=== PATIENT | male | born 1955 | race Caucasian/White ===

== ENCOUNTER 2022-03-10 19:00 | Emergency (ER) | payer OTHER ==
--- NOTE | 2022-03-10 19:22 | ED Physician Documentation ---
PD HPI BACK PAIN - Stated complaint Stated Complaint: C+,SPASMS,VOMIT - Chief complaint Chief Complaint: Back Pain - History obtained from History obtained from: Patient - Additional information Additional information: He developed COVID about 3 weeks ago despite being triple vaccinated. He was getting better but still managed to test positive yesterday at home. Today because he was feeling better he was working outside and developed sudden right flank pain and then vomited and developed some right lower quadrant pain. He has a history of renal colic but it was long enough ago that he does not remember if this is similar or not. He denies fevers or chills. Had a normal bowel movement earlier today. He declines pain or nausea medicine on initial evaluation. Review of Systems Ten Systems: 10 systems reviewed and negative Constitutional: reports: Fatigue. denies: Fever, Chills Respiratory: denies: Dyspnea, Cough GI: reports: Abdominal Pain, Nausea, Vomiting. denies: Constipation, Diarrhea PD PAST MEDICAL HISTORY - Present Medications Home Medications: Ambulatory Orders Medication Instructions Recorded Confirmed Ondansetron Odt [Zofran] 4 mg TL Q6H PRN #10 tablet 03/10/22 Oxycodone HCl/Acetaminophen 1 - 2 each PO Q6H PRN #14 tablet 03/10/22 [Percocet 5-325 mg Tablet] Tamsulosin [Flomax] 0.4 mg PO DAILY #14 cap 03/10/22 - Allergies Allergies/Adverse Reactions: Allergies Allergy/AdvReac Type Severity Reaction Status Date / Time No Known Drug Allergies Allergy Verified 03/10/22 19:14 PD ED PE NORMAL - Vitals Vital signs reviewed: Yes - General General: Alert and oriented X 3, No acute distress - Neck Neck: Supple, no meningeal sign, No bony TTP - Cardiac Cardiac: RRR, No murmur - Respiratory Respiratory: No respiratory distress, Clear bilaterally - Abdomen Abdomen: Normal bowel sounds, Soft, Other (Minimal if any right lower quadrant tenderness) - Back Back: No CVA TTP, No spinal TTP - Derm Derm: Normal color, Warm and dry - Extremities Extremities: No edema, No calf tenderness / cord - Neuro Neuro: Alert and oriented X 3, Normal speech Results - Vitals Vitals: Vital Signs - 24 hr 03/10/22 03/10/22 19:12 21:09 Temperature 36.9 C 36.9 C Heart Rate 64 61 Respiratory 17 15 Rate Blood Pressure 164/94 H 149/78 H O2 Saturation 100 99 Oxygen O2 Source Room air - Labs Labs: Laboratory Tests 03/10/22 03/10/22 03/10/22 19:30 19:30 20:15 WBC 11.3 H RBC 4.29 L Hgb 14.4 Hct 41.3 L MCV 96.3 H MCH 33.6 H MCHC 34.9 RDW 12.1 Plt Count 223 MPV 9.6 Neut # (Auto) 9.3 H Lymph # (Auto) 1.0 L [place] # (Auto) 0.8 Eos # (Auto) 0.0 Baso # (Auto) 0.0 Absolute Nucleated RBC 0.00 Nucleated RBC % 0.0 Sodium 138 Potassium 4.0 Chloride 99 L Carbon Dioxide 29 Anion Gap 10.0 BUN 21 H Creatinine 1.3 H Estimated GFR (MDRD) 56 L Glucose 115 H Calcium 9.6 Total Bilirubin 0.7 AST 19 ALT 18 Alkaline Phosphatase 59 Total Protein 7.9 Albumin 4.7 Globulin 3.2 Albumin/Globulin Ratio 1.5 Lipase 43 Urine Color YELLOW Urine Clarity HAZY Urine pH 7.5 Ur Specific [place] 1.020 Urine Protein NEGATIVE Urine Glucose (UA) NEGATIVE Urine Ketones TRACE Urine Occult Blood LARGE H Urine Nitrite NEGATIVE Urine Bilirubin NEGATIVE Urine Urobilinogen 0.2 (NORMAL) Ur Leukocyte Esterase NEGATIVE Urine RBC TNTC H Urine WBC 0-3 Ur Squamous Epith Cells NONE SEEN Urine Bacteria None Seen Ur Microscopic Review INDICATED Urine Culture Comments NOT INDICATED - Rads (name of study) CT KUB Radiology: EMP read contemporaneously PD MEDICAL DECISION MAKING - ED course ED course: 66-year-old gentleman with recent COVID presents with sudden onset back and right lower quadrant pain today. Initially declined pain medication but then acquiesced. CT KUB demonstrating an obstructing 4 mm right proximal ureteral stone. Urine without signs of infection. Feeling much better after fluids, Zofran and Toradol here. Departure - Departure Disposition: 01 Home, Self Care Clinical Impression: Renal colic on right side Condition: Good Record reviewed to determine appropriate education?: Yes Instructions: ED Stone Renal W Colic Prescriptions: Tamsulosin [Flomax] 0.4 mg PO DAILY #14 cap Oxycodone HCl/Acetaminophen [Percocet 5-325 mg Tablet] 1 - 2 each PO Q6H PRN #14 tablet PRN Reason: pain Ondansetron Odt [Zofran] 4 mg TL Q6H PRN #10 tablet PRN Reason: Nausea / Vomiting Comments: I sent your prescriptions to [facility] in [place]. Today you were found to have a 4 mm right-sided ureteral stone which is causing your pain. If not better in a few days to week talk with your primary care physician about a referral to a urologist. Return for new or worsening symptoms. In addition to the prescriptions you can take ibuprofen for pain. I am prescribing a short course of narcotic pain medication for you. These are potentially dangerous and addictive medications that should be used carefully. These medications may constipate you. Take an htbr-tpi-eiayqam stool softener (d ocusate) twice daily with plenty of water while taking these medications. If you go 24 hours without a bowel movement, take piiz-[id number] miralax, per package instructions. Do not drink or drive while taking these medications. If you received narcotic or sedating medications while in the emergency department, do not drive for 24 hours. Store this medication in a safe, secure place and out of reach of children. It is a violation of federal law to give or sell this medication to another person or to use in a manner other than prescribed. The ED will not refill narcotic prescriptions, including prescriptions lost or stolen. To dispose of unwanted medications: 1. [facility] [address] in [place] has a medication drop box. They accept prescription medications (in pill form) Thursday through Thursday 9:00 a.m. to 5:00 p.m. 2. The [facility] [employer] accepts prescription medications (in pill form only) for disposal year round. Call for more information. 3. Contact the [facility] for the next [employer] sponsored prescription drug collection event. , [phone], or x [phone]; Note that many narcotic pain relievers also contain Tylenol/acetaminophen. Please ensure that your total dose of acetaminophen from all sources does not exceed 3 g (3000 mg) per day. Discharge Date/Time: 03/10/22 21:17
[2022-03-10] MEDS ORDERED: SODIUM CHLORIDE 0.9% 1,000 ML IV STA (19:23)
[2022-03-10] MEDS ORDERED: ONDANSETRON 4 MG/2 ML VIAL IVP STA (19:44)
[2022-03-10 19:47] LABS: BASOPHILS % (AUTO) 0.4 %; EOSINOPHILS % (AUTO) 0.3 %; HCT - HEMATOCRIT 41.3 % (42.0-52.0); HGB - HEMOGLOBIN 14.4 g/dL (14.0-18.0); LYMPHOCYTES % (AUTO) 9.1 %; MEAN CORPUSCULAR HEMOGLOBIN 33.6 pg (27.0-31.0); MEAN CORPUSCULAR HGB CONC 34.9 g/dL (32.0-36.0); MEAN CORPUSCULAR VOLUME 96.3 fL (80.0-94.0); MEAN PLATELET VOLUME 9.6 fL (7.4-11.4); MONOCYTES # (AUTO) 0.8 10^3/uL (0.0-1.0); MONOCYTES % (AUTO) 7.4 %; NEUTROPHILS # (AUTO) 9.3 10^3/uL (1.5-6.6); NEUTROPHILS % (AUTO) 82.5 %; PLT - PLATELET COUNT 223 10^3/uL (130-450); RED BLOOD COUNT 4.29 10^6/uL (4.70-6.10); RED CELL DISTRIBUTION WIDTH 12.1 % (12.0-15.0); WHITE BLOOD COUNT 11.3 x10^3/uL (4.8-10.8)
[2022-03-10 20:01] LABS: ALBUMIN 4.7 g/dL (3.2-5.5); ALBUMIN/GLOBULIN RATIO 1.5 (1.0-2.2); BILIRUBIN,TOTAL 0.7 mg/dL (0.2-1.0); CALCIUM 9.6 mg/dL (8.5-10.3); CREATININE 1.3 mg/dL (0.6-1.2); TOTAL PROTEIN 7.9 g/dL (6.7-8.2)
--- NOTE | 2022-03-10 20:20 | CT Report ---
PROCEDURE: Abdomen/Pelvis WO INDICATIONS: rlq pain TECHNIQUE: Noncontrast 5 mm thick sections acquired from the diaphragms to the symphysis. 5 mm coronal and sagi ttal reformats were then performed. For radiation dose reduction, the following was used: automated exposure control, adjustment of mA and/or kV according to patient size. COMPARISON: None. FINDINGS: Image quality: There is mild motion artifact. Lung bases:There is mild dependent atelectasis and scarring in the lungs.. Heart: Heart is normal in size. ABDOMEN: Liver:Noncontrast evaluation of liver demonstrates no discrete mass. Gallbladder: Within normal limits without calcified gallstones. Biliary ducts: No biliary ductal dilatation. Pancreas: Unremarkable. Spleen: Normal in size. Adrenal Glands: No adrenal nodules. Kidneys and Ureters: There is an obstructing stone in the proximal right ureter measuring up to 0.4 cm with associated mild right hydroureteronephrosis as well as perinephric and periureteral fat stran ding. No additional right or left renal stones identified. There is no left hydronephrosis. Left uret er is nondistended. Stomach and Bowel: Stomach, small bowel loops, and colon are normal in caliber and wall thickness. T he appendix is normal in appearance. There is colonic diverticulosis without acute diverticulitis. Peritoneum: No abnormal intraperitoneal fluid. No free air. Ventral Wall: No hernia. Abdominal Nodes: No retroperitoneal or mesenteric adenopathy by size criteria. Vessels: Aorta and inferior vena cava are normal in size. PELVIS: Pelvic Organs: Unremarkable. Bladder:Normal wall thickness. No bladder stones.. Pelvic Nodes: No enlarged lymph nodes. Miscellaneous: No inguinal hernias are seen. Bones: Visualized osseous structures demonstrate no suspicious focal lesions. IMPRESSION: 1. Obstructing urinary stone in the proximal right ureter with associated mild right hydroureteroneph rosis. 2. No evidence of appendicitis. Reviewed by: Brayden Vasquez MD on 03/10/2022 8:19 PM PDT Approved by: Brayden Vasquez MD on 03/10/2022 8:19 PM PDT Station ID: [id number]
[2022-03-10] MEDS ORDERED: KETOROLAC 15 MG/ML VIAL IVP STA (20:32)
[2022-03-10 20:48] LABS: BILIRUBIN,URINE NEGATIVE (NEGATIVE); GLUCOSE, URINE (UA) NEGATIVE (NEGATIVE); KETONES,URINE (UA) TRACE mg/dL (NEGATIVE); LEUKOCYTE ESTERASE, URINE NEGATIVE (NEGATIVE); NITRITE,URINE NEGATIVE (NEGATIVE); OCCULT BLOOD,URINE LARGE (NEGATIVE); PH,URINE 7.5 PH (5.0-7.5); PROTEIN,URINE NEGATIVE (NEGATIVE); UROBILINOGEN,URINE 0.2 (NORMAL) E.U./dL (NORMAL)
[2022-03-10 20:50] LABS: CLARITY,URINE HAZY (CLEAR)
[2022-03-10] MEDS ORDERED: oxyCODONE/ACET 5/325 Prepack 4 PO STA (20:58)
[2022-03-10] MEDS ORDERED: TAMSULOSIN 0.4 MG CAPSULE PO STA (20:58)
[2022-03-10] MEDS ORDERED: ONDANSETRON ODT 4 MG Prepack 2 TL STA (20:58)
[2022-03-10 21:10] VITALS: BP 149/78
[2022-03-10 21:11] LABS: BACTERIA,URINE None Seen /HPF (None Seen); RBC,URINE TNTC /HPF (0-5); SQUAMOUS EPITHELIAL CELL,UR NONE SEEN (<= Few); WBC,URINE 0-3 /HPF (0-3)
== END 2022-03-10 21:17 | disposition home or self-care (01) ==
LOC: ED 19:00
DX: U07.1 COVID-19 (principal); N13.2 Hydronephrosis with renal and ureteral calculous obstruction
CPT/HCPCS: 36415; 74176; 80053; 81001; 83690; 85025; 96374; 96375; 99283; 99284; A9270; 81003; 87086

== ENCOUNTER 2022-04-04 19:11 | Outpatient (CLI) | payer OTHER | END 2022-04-04 19:12 | disposition critical access hospital (66) | LOC: EMS 19:11 | DX: R55 Syncope and collapse (principal); R53.1 Weakness; R42 Dizziness and giddiness; I95.1 Orthostatic hypotension | CPT/HCPCS: A0425; A0427 ==

== ENCOUNTER 2022-04-04 19:22 | Emergency (ER) | payer OTHER ==
--- NOTE | 2022-04-04 19:27 | ED Physician Documentation ---
PD HPI SYNCOPE - Stated complaint Stated Complaint: SYNCOPE - History obtained from History obtained from: Patient - History of Present Illness Witnessed: Witnessed Timing - onset: Today (The patient states he had a regular day of activities with yard work. He did state he had not had fluids much through the day. He was standing at the grill starting dinner felt lightheaded and went to sit down but then fainted. No chest pain. He did strike his head with small contusion.) Preceding symptoms: Light headed. No: Headache, Chest pain, Abdominal pain, Nausea / vomiting Associated symptoms: No: Headache, Chest pain, Abdominal pain Contributing factors: Decreased PO intake, Other (had had just few sips of wine while making dinner.). No: Recent med change, Noxious stimulae, Just stood up (was standing at the grill making dinner on their deck.) Injury occurred: Fell, Head injury (contusion right occiput) Treatment CAR MOVER: Fluids Similar symptoms before: Diagnosis (He had had couple of fainting episodes 1 or 2 years ago related to blood pressure medicine that had been started. Decreased dose still led to fainting episode with standing. He has been off the blood pressure medicine and without any symptoms now for a while.) Recently seen: Not recently seen Review of Systems Constitutional: reports: Fatigue (he states he had COVID a month ago and has not really gotten full energy back. No cough nor dyspnea. Denies exertional CP nor lightheadedness today.). denies: Fever Nose: denies: Rhinorrhea / runny nose, Congestion Throat: denies: Sore throat Respiratory: denies: Cough PD PAST MEDICAL HISTORY - Past Medical History Cardiovascular: None Respiratory: None Neuro: None Endocrine/Autoimmune: None - Past Surgical History Past Surgical History: Yes Ortho: Arthroscopic surgery, Carpal Tunnel surgery - Present Medications Home Medications: Ambulatory Orders Medication Instructions Recorded Confirmed Ondansetron Odt [Zofran] 4 mg TL Q6H PRN #10 tablet 03/10/22 Oxycodone HCl/Acetaminophen 1 - 2 each PO Q6H PRN #14 tablet 03/10/22 [Percocet 5-325 mg Tablet] Tamsulosin [Flomax] 0.4 mg PO DAILY #14 cap 03/10/22 - Allergies Allergies/Adverse Reactions: Allergies Allergy/AdvReac Type Severity Reaction Status Date / Time No Known Drug Allergies Allergy Verified 04/04/22 19:28 - Living Situation Living Situation: reports: With spouse/s.o. Living Arrangement: reports: At home - Social History Does the pt smoke?: No Smoking Status: Never smoker Does the pt drink ETOH?: Yes Does the pt have substance abuse?: No - Immunizations Immunizations are current?: Yes PD ED PE NORMAL - Vitals Vital signs reviewed: Yes (relatively low for age at 110 systolic BP.) - General General: Alert and oriented X 3, Well developed/nourished - HEENT HEENT: PERRL, EOMI, Other (Right occipital scalp with some small localized area of swelling and mild tenderness.). No: Moist mucous membranes - Neck Neck: Supple, no meningeal sign, No adenopathy - Cardiac Cardiac: RRR, No murmur - Respiratory Respiratory: Clear bilaterally - Abdomen Abdomen: Soft, Non tender - Back Back: No spinal TTP - Derm Derm: Normal color, Warm and dry, No rash - Extremities Extremities: No tenderness to palpate, Normal ROM s pain, No edema, No calf tenderness / cord - Neuro Neuro: Alert and oriented X 3, No motor deficit, Normal speech Eye Opening: Spontaneous Motor: Obeys Commands Verbal: Oriented GCS Score: 15 - Psych Psych: Normal mood, Normal affect Results - Vitals Vitals: Vital Signs - 24 hr 04/04/22 04/04/22 19:28 19:34 Temperature 36.6 C 36.6 C Heart Rate 73 73 Respiratory 16 16 Rate Blood Pressure 118/67 118/67 O2 Saturation 96 96 Oxygen O2 Source Room air - EKG (time done) admission Rhythm: NSR [place]: Normal Intervals: Normal VA QRS: Normal Ischemia: Normal ST segments. No: ST elevation c/w ischemia, ST depression - Labs Labs: Laboratory Tests 04/04/22 04/04/22 04/04/22 19:43 19:43 19:43 WBC 5.0 RBC 3.65 L Hgb 12.1 L Hct 35.7 L MCV 97.8 H MCH 33.2 H MCHC 33.9 RDW 12.5 Plt Count 186 MPV 9.3 Neut # (Auto) 2.9 Lymph # (Auto) 1.4 L [place] # (Auto) 0.6 Eos # (Auto) 0.0 Baso # (Auto) 0.0 Absolute Nucleated RBC 0.00 Nucleated RBC % 0.0 Sodium 136 Potassium 3.7 Chloride 104 Carbon Dioxide 25 Anion Gap 7.0 BUN 22 H Creatinine 1.1 Estimated GFR (MDRD) 67 L Glucose 149 H Calcium 8.3 L Magnesium 1.8 Total Bilirubin 0.6 AST 15 ALT 16 Alkaline Phosphatase 45 Troponin I High Sens 2.4 Total Protein 6.8 Albumin 3.8 Globulin 3.0 Albumin/Globulin Ratio 1.3 Lipase 65 H TSH 04/04/22 19:43 WBC RBC Hgb Hct MCV MCH MCHC RDW Plt Count MPV Neut # (Auto) Lymph # (Auto) [place] # (Auto) Eos # (Auto) Baso # (Auto) Absolute Nucleated RBC Nucleated RBC % Sodium Potassium Chloride Carbon Dioxide Anion Gap BUN Creatinine Estimated GFR (MDRD) Glucose Calcium Magnesium Total Bilirubin AST ALT Alkaline Phosphatase Troponin I High Sens Total Protein Albumin Globulin Albumin/Globulin Ratio Lipase TSH 1.00 - Rads (name of study) chest xray Radiology: Prelim report reviewed (no acute process), See rad report head CT Radiology: Prelim report reviewed (no acute intracranial abnormality.), See rad report PD MEDICAL DECISION MAKING - ED course Complexity details: re-evaluated patient (feels better after IV fluids with feeling more energentic. Posturals done and are okay. No symptoms with standing. ), considered differential Departure - Departure Disposition: 01 Home, Self Care Clinical Impression: Postural syncope Scalp contusion Qualifiers: Encounter type: initial encounter Qualified Code(s): S00.03XA - Contusion of scalp, initial encounter Condition: Stable Record reviewed to determine appropriate education?: Yes Instructions: ED Syncope Vasovagal Comments: Your EKG appears normal here. Your EKG she did monitor is showing a normal rhythm. No signs of irregularity to account for your fainting episode. Your blood test showed minimal abnormalities with a slightly low calcium and slightly anemic but not enough again to account for your symptoms. No signs of heart attack or pneumonia or other acute process. Presume he had a transient drop in your blood pressure leading to the fainting episode. Be sure to stay well-hydrated. Follow-up with your primary care if recurring lightheaded episodes or such for potential further work-up that could possibly include a heart monitor that you wear to record your rhythm over a week. If you do not have other episodes then presume just episode of under hydration associated with the lower blood pressure. Your head CT scan is normal without any signs of bleeding or fractures associated with the injury. You will likely have some soreness on the scalp. Tylenol or ibuprofen if needed for pains.
[2022-04-04] MEDS ORDERED: SODIUM CHLORIDE 0.9% 1,000 ML IV STA (19:44)
[2022-04-04 19:49] LABS: BASOPHILS % (AUTO) 0.8 %; EOSINOPHILS % (AUTO) 0.8 %; HCT - HEMATOCRIT 35.7 % (42.0-52.0); HGB - HEMOGLOBIN 12.1 g/dL (14.0-18.0); LYMPHOCYTES # (AUTO) 1.4 10^3/uL (1.5-3.5); LYMPHOCYTES % (AUTO) 28.7 %; MEAN CORPUSCULAR HEMOGLOBIN 33.2 pg (27.0-31.0); MEAN CORPUSCULAR HGB CONC 33.9 g/dL (32.0-36.0); MEAN CORPUSCULAR VOLUME 97.8 fL (80.0-94.0); MEAN PLATELET VOLUME 9.3 fL (7.4-11.4); MONOCYTES # (AUTO) 0.6 10^3/uL (0.0-1.0); MONOCYTES % (AUTO) 11.1 %; NEUTROPHILS # (AUTO) 2.9 10^3/uL (1.5-6.6); NEUTROPHILS % (AUTO) 58.4 %; PLT - PLATELET COUNT 186 10^3/uL (130-450); RED BLOOD COUNT 3.65 10^6/uL (4.70-6.10); RED CELL DISTRIBUTION WIDTH 12.5 % (12.0-15.0)
[2022-04-04 20:02] LABS: ALBUMIN 3.8 g/dL (3.2-5.5); ALBUMIN/GLOBULIN RATIO 1.3 (1.0-2.2); BILIRUBIN,TOTAL 0.6 mg/dL (0.2-1.0); CALCIUM 8.3 mg/dL (8.5-10.3); CREATININE 1.1 mg/dL (0.6-1.2); MAGNESIUM 1.8 mg/dL (1.7-2.8); POTASSIUM 3.7 mmol/L (3.5-5.0); TOTAL PROTEIN 6.8 g/dL (6.7-8.2)
--- NOTE | 2022-04-04 20:18 | CT Report ---
PROCEDURE: HEAD WO INDICATIONS: fall, struck head, head pain TECHNIQUE: Noncontrast 4.5 mm thick angled axial sections acquired from the foramen magnum to the vertex. For r adiation dose reduction, the following was used: automated exposure control, adjustment of mA and/or kV according to patient size. COMPARISON: None. FINDINGS: Image quality: There is beam hardening artifact from patient's dental hardware. CSF spaces: Basal cisterns are patent. No extra-axial fluid collections. Ventricles are normal in size and shape. Brain: No intracranial hemorrhage, mass, or mass effect. Daley-white matter interface appears preser ольга. Skull and face: Calvarium and visualized facial bones are intact, without suspicious lesions. Sinuses: Visualized sinuses demonstrate mild mucosal thickening within the ethmoid sinuses. Mastoid air cells are clear. IMPRESSION: 1. No acute intracranial abnormality. Reviewed by: Brayden Vasquez MD on 04/04/2022 8:17 PM PDT Approved by: Brayden Vasquez MD on 04/04/2022 8:17 PM PDT Station ID: [id number]
--- NOTE | 2022-04-04 20:44 | XRAY Report ---
PROCEDURE: Chest 1 View X-Ray INDICATIONS: cough, weakness TECHNIQUE: One view of the chest was acquired. COMPARISON: None. FINDINGS: Surgical changes and devices: None. Lungs and pleura: No pleural effusions or pneumothorax. Lungs are clear. Mediastinum: Mediastinal contours appear normal. Heart size is normal. Bones and chest wall: No suspicious bony lesions. Overlying soft tissues appear unremarkable. IMPRESSION: 1. No acute cardiopulmonary disease. Reviewed by: Brayden Vasquez MD on 04/04/2022 8:43 PM PDT Approved by: Brayden Vasquez MD on 04/04/2022 8:43 PM PDT Station ID: [id number]
[2022-04-04 21:04] VITALS: BP 127/77
== END 2022-04-04 21:04 | disposition home or self-care (01) ==
LOC: EDUNIT# → ED 19:22
DX: S00.03XA Contusion of scalp, initial encounter (principal); W18.30XA Fall on same level, unspecified, initial encounter; Y93.G3 Activity, cooking and baking
CPT/HCPCS: 36415; 80053; 83690; 83735; 84443; 84484; 85025; 93005; 99283; 99284

== ENCOUNTER 2023-02-11 09:42 | Day surgery (SDC) | payer MEDICARE ==
[2023-02-11] MEDS: LACTATED RINGERS 1,000 ML IV ONE (10:13)
[2023-02-11] MEDS ORDERED: PROPOFOL 500 MG/50 ML 500 MG/50 ML VIAL ONE (11:15)
[2023-02-11] MEDS ORDERED: GLYCOPYRROLATE 1 MG/5 ML VIAL ONE (11:20)
--- NOTE | 2023-02-11 11:21 | ANESTHESIA ---
Pre-Anesthesia VS, & Labs - Diagnosis screening exam, history of colon polyps - Procedure colonoscopy Vital Signs: Temp Pulse Resp BP Pulse Ox O2 Flow Rate 36.1 C L 64 18 155/93 H 100 02/11/23 10:01 02/11/23 10:01 02/11/23 10:01 02/11/23 10:01 02/11/23 10:01 Height: 6 ft Weight (kg): 100.9 kg Body Mass Index: 30.2 BMI Classification: Obese - NPO >8 hours Home Medications and Allergies Allergies/Adverse Reactions: Allergies Allergy/AdvReac Type Severity Reaction Status Date / Time No Known Drug Allergies Allergy Verified 04/04/22 19:28 Anes History & Medical History - Anesthetic History Anesthesia Complications: reports: No previous complications - Medical History Cardiovascular: reports: None Pulmonary: reports: None Gastrointestinal: reports: Colon polyps Urinary: reports: None Neuro: reports: None Musculoskeletal: reports: None Endocrine/Autoimmune: reports: None Skin: reports: None Smoking Status: Never smoker Psychosocial: reports: Alcohol (4 glasses of wine per week), Cannabis (daily) History of Cancer?: No - Surgical History Orthopedic: reports: Other Exam General: Alert, Oriented x3, Cooperative, No acute distress Dental: WNL Mouth Openin Fingerbreadth Neck Mobility: Normal Mallampati classification: II Thyromental Distance: 4-6 cm Mental/Cognitive Status: Alert/Oriented X3, Normal for patient Plan Anesthesia Type: General, Total IV Consent for Procedure(s) Verified and Reviewed: Yes Code Status: Attempt Resuscitation ASA classification: 2-Mild systemic disease Is this case an emergency?: No
[2023-02-11] MEDS ORDERED: MIDAZOLAM 2 MG/2 ML VIAL ONE (12:09)
[2023-02-11] MEDS: LACTATED RINGERS 500 ML IV ONE (12:38)
[2023-02-11 13:03] VITALS: BP 127/95
--- NOTE | 2023-02-11 15:07 | ANESTHESIA POST OP EVALUATION ---
Anesthesia Post Eval - Post Anesthesia Eval Vitals: Last Vital Signs Temp 36.1 C L 02/11/23 13:02 Pulse 51 L 02/11/23 13:02 Resp 20 02/11/23 13:02 BP 127/95 H 02/11/23 13:02 Pulse Ox 99 02/11/23 13:02 O2 Flow Rate CV Function Including HR & BP: Stable Pain Control: Satisfactory Nausea & Vomiting: Negative Mental Status: Baseline Respiratory Status: Airway Patent Hydration Status: Satisfactory Anesthesia Complications: None
== END 2023-02-11 09:43 | disposition home or self-care (01) ==
LOC: SDS 09:42
PROVIDERS: ATTEND Surgery
PROC: 0DBL8ZZ Excision of Transverse Colon, Via Natural or Artificial Opening Endoscopic (ICD-10-PCS; principal; 2023-02-11 10:45)
DX: Z12.11 Encounter for screening for malignant neoplasm of colon (principal); D12.3 Benign neoplasm of transverse colon; K64.0 First degree hemorrhoids; E66.9 Obesity, unspecified; Z68.30 Body mass index [BMI] 30.0-30.9, adult
CPT/HCPCS: 45385; J7120